=== PATIENT | male | born 1980 | race Caucasian/White ===

== ENCOUNTER 2016-10-23 17:01 | Emergency (ER) | payer OTHER ==
--- NOTE | ~2016-10-23 | CT2 ---
[facility] A Service of [facility] RADIOLOGY TEXT RESULTS PATIENT: SANDI MCGARRY LOCATION: SED : 76 UNIT #: [id number] AGE: [address]: Josep Dennison SEX: M ORDER DR: [id number] [place] [id number] MR#: [id number] Acc #: [id number] NAME: SANDI MCGARRY. : 1980 SEX: M STUDY DATE/TIME: 10/23/2016 18:47 UNIT: SED ROOM: STUDY DESCRIPTION: CT Abd and Pelv W Cont Attending Physician: Josep Dennison P.A.-C. Ordering Physician: Josep Dennison P.A.-C. MEDICAL IMAGING REPORT This report is preliminary unless electronic signature is present. EXAM CT abdomen and pelvis with IV contrast HISTORY Right upper abdomen pain for [address] exam was performed with one or more of the following radiation dose reduction techniques: automatic exposure control, adjustment of mA and/or kV according to patient size, and iterative reconstruction. FINDINGS CT abdomen and pelvis was performed with IV contrast. CT ABDOMEN: Cholecystectomy. Minimal stranding in the gallbladder fossa but no fluid collection or abscess. No free fluid. No free air. The liver, spleen, pancreas, kidneys, and adrenal glands are normal. Normal caliber abdominal aorta. Mild subcutaneous stranding at the umbilicus compatible with recent laparoscopic surgery. CT PELVIS: Normal appendix. No free fluid. No bowel dilatation. Urinary bladder is normal. IMPRESSION 1. No acute findings in the abdomen or pelvis. 2. Postop changes of recent cholecystectomy. No abnormal fluid collection or abscess in the gallbladder fossa. No free fluid. 3. Normal appendix. 4. No urinary obstruction or bowel obstruction. Dictated by... [facility] A Service [facility] RADIOLOGY TEXT RESULTS PATIENT: SANDI MCGARRY LOCATION: SED : 76 UNIT #: [id number] AGE: [address]: Josep Dennison PAC SEX: M ORDER DR: Fracisco Ashford M.D. THIS IS AN ELECTRONICALLY VERIFIED REPORT Fracisco Ashford M.D. at 10/25/2016 12:06 AM FATEMEH/javier TD: 10/24/2016 05:02 JOB #: [id number] MEDICAL IMAGING REPORT Page 1 of 1
--- NOTE | ~2016-10-23 | EKG ---
PATIENT: SANDI MCGARRY UNIT #: [id number] Ventricular Rate: 56 BPM Atrial Rate: 56 BPM P-R Interval: 198 ms QRS Duration: 104 ms Q-T Interval: 420 ms QTC Calculation(Bezet): 405 ms P [place]: 36 degrees Calculated R [place]: -9 degrees Calculated T [place]: -25 degrees Diagnosis Line: Sinus bradycardia with sinus arrhythmia Diagnosis Line: Inferior infarct , age undetermined Diagnosis Line: Abnormal ECG Diagnosis Line: No previous ECGs available Diagnosis Line: Confirmed by TWIN FRIED MD ([id number]) on Diagnosis Line: 10/24/2016 3:51:57 PM INTERPRETING MD: FARIHA COX
[2016-10-23] MEDS ORDERED: NO MEDICATIONS (17:21)
[2016-10-23 18:03] LABS: BASOPHIL# 0.1 X10e3 (0-0.3); BASOPHIL% 0.9 % (0-2.5); EOSINOPHIL# 0.1 X10e3 (0-0.7); EOSINOPHIL% 1.7 % (0.0-7.0); HEMATOCRIT 43.4 % (38.0-50.0); HEMOGLOBIN 15.3 gm/dL (13.0-16.0); LYMPHOCYTE# 2.3 X10e3 (1.0-3.5); LYMPHOCYTE% 29.8 % (17.0-45.0); MEAN CELL VOLUME 87.2 FL (83-96); MEAN CORPUSCULAR HEMOGLOBIN 30.9 PG (28-34); MEAN CORPUSCULAR HGB CONC 35.4 g/dL (30-36); MEAN PLATELET VOLUME 8.4 FL (6.5-11.5); MONOCYTE# 0.7 X10e3 (0-1.0); MONOCYTE% 9.8 % (3.0-12.0); NEUTROPHIL# 4.4 X10e3 (1.5-7.1); NEUTROPHIL% 57.8 % (40-75); PLATELET COUNT 310 X10e3 (140-420); RED BLOOD COUNT 4.97 X10e (3.90-5.60); RED CELL DISTRIBUTION WIDTH 13.3 % (11.0-15.5); WHITE BLOOD COUNT 7.6 X10e3 (4.0-10.5)
[2016-10-23 18:12] LABS: DIFF IND NO
[2016-10-23 18:24] LABS: ALBUMIN SERUM 4.8 g/dL (3.5-5.0); ALKALINE PHOSPHATASE 90 U/L (32-92); ALT (SGPT) 31 U/L (10-40); AMYLASE 38 U/L (0-46); AST (SGOT) 23 U/L (10-42); BILIRUBIN,TOTAL 0.4 mg/dL (0.2-2.0); BLOOD UREA NITROGEN 17 mg/dL (9-23); BUN/CREATININE RATIO 18.88; CALCIUM SERUM 9.4 mg/dL (8.4-10.2); CARBON DIOXIDE 24 mmol/L (22-31); CHLORIDE 108 mmol/L (100-111); CREATININE SERUM 0.9 mg/dL (0.6-1.4); GLUCOSE FASTING 95 mg/dL (70-110); LIPASE 39 U/L (22-51); POTASSIUM 3.8 mmol/L (3.5-5.1); SODIUM 140 mmol/L (135-145)
[2016-10-23 18:25] LABS: BILIRUBIN, DIRECT <0.1 mg/dL (0.0-0.2); BILIRUBIN,INDIRECT 0.3 mg/dL (0.0-0.9)
== END 2016-10-23 20:05 | disposition home or self-care (01) ==
LOC: SED 17:01
PROVIDERS: Physician Assistant
DX: G89.18 Other acute postprocedural pain (principal); R10.11 Right upper quadrant pain; Z90.49 Acquired absence of other specified parts of digestive tract; F17.200 Nicotine dependence, unspecified, uncomplicated
CPT/HCPCS: 36415; 74177; 80048; 80076; 82150; 83690; 85025; 93005; 96374; 96375; 96376; 99284; J1170; J2270; J2405; Q9967